=== PATIENT | female | born 1970 | race Caucasian/White ===

== ENCOUNTER 2017-09-04 17:25 | Emergency (ER) | payer OTHER ==
[~2017-09-04] VITALS: Ht 160 cm; Wt 50.8 kg
[~2017-09-04 17:25] MED LIST: ALPR0.5T PO; IBUP1CAP PO; PRLSR20 PO
[2017-09-04 17:36] VITALS: TEMP 36.7; Ht 160 cm; Wt 50.8 kg
[2017-09-04] MEDS ORDERED: SODIUM CHLORIDE 0.9% 500ML 500 ML IV STA (18:29)
[2017-09-04] MEDS ORDERED: GI COCKTAIL PO STA (18:29)
[2017-09-04] MEDS ORDERED: METHYLPREDNISOLONE 125 MG VIAL IV STA (18:29)
[2017-09-04] MEDS ORDERED: ALBUT/IPRATROP 3MG/0.5MG NEB 3 ML VIAL INH ONE (18:30)
[2017-09-04] MEDS ORDERED: LIDOCAINE HCL 2% VISC SOLN 20 ML UDC ONE (18:46)
[2017-09-04] MEDS ORDERED: ALUMINUM/MAGNESIUM SUSP 30 ML UDC ONE (18:46)
--- NOTE | 2017-09-04 18:50 | EMERGENCY ROOM VISIT NOTE ---
History Report prepared by Yanci: Stephani Staples Under the Supervision of: Dr. Harjeet Donaldson M.D. First contact with patient: 18:22 Chief Complaint: SORETHROAT Stated Complaint: SORE THROAT, COUGHING, MY RT SHOULDER History of Present Illness The patient is a 46 year old female who presents to the Emergency Room with complaints of persistent cough starting last week. The patient was started on Levaquin by her PCP 6 days ago for bronchitis, but she is still coughing. She woke up yesterday morning with a sore throat. She has been using an inhaler. She is currently not on steroids. She notes that she broke her right shoulder several weeks ago. She has been waiting to hear back from ortho. She states that the pain has worsened because she has continued working. She quit smoking 1 year ago. Source of History: patient Onset: last week Position: other (global) Quality: other (cough) Timing: other (persistent) Associated Symptoms: + sorethroat Note: Pt reports right shoulder pain. Review of Systems See HPI for pertinent positives & negatives. A total of 10 systems reviewed and were otherwise negative. Past Medical & Surgical Medical Problems: (1) Meningitis Family History Patient reports no known family medical history. Social History Smoking Status: Former Smoker Marital Status: Housing Status: lives with family Current/Historical Medications Scheduled Albuterol Hfa (Ventolin Hfa), 2-4 PUFFS INH Q6H Doxycycline Monohydrate (Monodox), 100 MG PO BID Ibuprofen (Midol), 400 MG PO DAILY Omeprazole (Prilosec), 20 MG PO DAILY Prednisone (Prednisone Tab), 0 PO DAILY Scheduled PRN Alprazolam (Xanax), 1 MG PO QID PRN Hydrocodone W/ Homatropine (Hycodan 5/1.5MG 5 Ml), 5 ML PO HS PRN for Cough Allergies Coded Allergies: No Known Allergies (Unverified , 06/12/16) Physical Exam Vital Signs Date Time Temp Pulse Resp B/P (MAP) Pulse Ox O2 Delivery O2 Flow Rate FiO2 09/04/17 19:05 91 18 108/82 95 09/04/17 17:36 36.7 102 20 119/83 95 Room Air 09/04/17 17:36 95 Room Air Physical Exam GENERAL: Patient is a healthy-appearing well-nourished female HEAD: Normocephalic atraumatic EYES: Ocular movements intact pupils equal and react to light OROPHARYNX mucous membranes are moist no exudates present no erythema or edema present NECK: Supple no nuchal rigidity CHEST: Good equal expansion LUNGS: Bilateral wheezing. CARDIAC: Normal S1 and S2 ABDOMEN: Soft nontender no guarding BACK: No CVA tenderness EXTREMITIES: No pain upon palpation normal muscle strength in all groups no clubbing cyanosis or edema NEURO: Patient is following commands and answering questions appropriately. Alert and oriented x3 Cranial Nerves 2-12 grossly intact Medical Decision & Procedures ER Provider Diagnostic Interpretation: X-ray results as stated below per interpretation by me and the radiologist: CHEST ONE VIEW PORTABLE HISTORY: 46 years-old Female Pt c/o SOB acute shortness of breath. COMPARISON: Chest radiograph 07/31/2013 TECHNIQUE: Portable upright AP view of the chest FINDINGS: Upper lobe predominant bullous emphysematous disease redemonstrated with associated upper lobe linear subsegmental pleural-parenchymal scarring. No pneumothorax, pleural effusion, focal airspace consolidation or overt pulmonary edema. Cardiac silhouette is within normal limits. Bones of the chest are grossly intact. IMPRESSION: 1. No acute cardiopulmonary process. 2. Redemonstration of bullous emphysematous disease with an upper lung zone predominant distribution with associated subsegmental upper lobe pleural parenchymal scarring. The above report was generated using voice recognition software. It may contain grammatical, syntax or spelling errors. Electronically signed by: Gopal Calhoun M.D. 09/04/2017 6:48 PM Dictated Date/Time: 09/04/2017 6:45 PM Laboratory Results Labs reviewed by ED physician. ED Course 1823: Past medical records reviewed. The patient was evaluated in room C11B. A complete history and physical examination was performed. 1904: Upon reexamination the patient is resting comfortably. I discussed results and treatment plan with the patient. She verbalizes agreement and understanding. The patient is ready for discharge. Medical Decision Differential diagnosis: Etiologies such as infections, reactive airway disease, pneumonia, pneumothorax , COPD, CHF, cardiac ischemia, pulmonary embolism, musculoskeletal, gastrointestinal, as well as others were entertained. This is a 47-year-old female who presents emergency department complaining of wheezing as well as right shoulder pain. Using shared medical decision-making I recommended the patient receive laboratory work as well as an IV and the patient initially agreed to this however before this could be performed the patient refused it. She simply wants a prednisone taper as well as an antibiotic and medicine for her cough. For this reason the patient was given Hycodan doxycycline prednisone and albuterol despite my recommendations. Medication Reconcilliation Current Medication List: was personally reviewed by me Blood Pressure Screening Patient's blood pressure: Normal blood pressure Blood pressure disposition: Did not require urgent referral Impression Primary Impression: Sore throat Scribe Attestation The scribe's documentation has been prepared under my direction and personally reviewed by me in its entirety. I confirm that the note above accurately reflects all work, treatment, procedures, and medical decision making performed by me. Departure Information Dispostion Home / Self-Care Prescriptions Hydrocodone W/ Homatropine (HYCODAN 5/1.5MG 5 ML) 1 Syp Syp 5 ML PO HS Y for Cough, #120 ML Prov: Harjeet Donaldson MD 09/04/17 Doxycycline Monohydrate (Monodox) 100 Mg Cap 100 MG PO BID for 10 Days, #20 CAP Prov: Harjeet Donaldson MD 09/04/17 Prednisone (Prednisone Tab) 20 Mg Tab 0 PO DAILY, #7 TAB 2 TABS DAILY FOR 2 DAYS, THEN 1 TAB DAILY FOR 2 DAYS, THEN 1/2 TAB DAILY FOR 2 DAYS. Prov: Harjeet Donaldson MD 09/04/17 Albuterol Hfa (VENTOLIN HFA) 200 Puffs/06833 Mcg Aers 2-4 PUFFS INH Q6H, #1 INHALER Prov: Harjeet Donaldson MD 09/04/17 Referrals Andrew Colmenares PA-C (PCP) Avi Fortune M.D. Patient Instructions My [facility] Additional Instructions Take 2 puffs of inhaler every 6 hours Follow up with Dr Fortune's office for shoulder pain Use 1000 mg Tylenol every 6 hours Take 600 mg Ibuprofen every 6 hours Take hycodan for breakthrough pain
[2017-09-04] MEDS ORDERED: VNTHFA/IN INH (18:59)
[2017-09-04] MEDS ORDERED: DOXY100C76 PO (18:59)
[2017-09-04] MEDS ORDERED: PRED20TA2 PO (18:59)
[2017-09-04] MEDS ORDERED: HYDR5SYP11 PO (19:00)
[2017-09-04 19:05] VITALS: BP 108/82; PULSE 91; O2SAT 95
== END 2017-09-04 19:05 | disposition home or self-care (01) ==
LOC: C.EDB 17:26 → C.EDC 19:05
DX: J02.9 Acute pharyngitis, unspecified (principal); Z87.891 Personal history of nicotine dependence; Z79.899 Other long term (current) drug therapy

== ENCOUNTER 2018-01-12 17:47 | Emergency (ER) | payer OTHER ==
[~2018-01-12] VITALS: Ht 160 cm; Wt 49.9 kg
[~2018-01-12 17:47] MED LIST changes: +PRED20TA2 PO; +VNTHFA/IN INH
[2018-01-12 17:54] VITALS: TEMP 36.6; Ht 160 cm; Wt 49.9 kg
[2018-01-12] MEDS ORDERED: LEVO-366 PO (18:12)
--- NOTE | 2018-01-12 18:25 | DIAGNOSTIC IMAGING REPORT ---
R SHOULDER MIN 2 VIEWS ROUTINE CLINICAL HISTORY: right shoulder pain pain COMPARISON: None. DISCUSSION: Considerable degenerative change of the glenohumeral joint. Mild degenerative change acromioclavicular joint. No well-defined acute bony antibody. Emphysematous changes of lungs. There is no evidence for soft tissue swelling. IMPRESSION: Considerable degenerative change primarily of the glenohumeral joint. The above report was generated using voice recognition software. It may contain grammatical, syntax or spelling errors. Electronically signed by: Nathaniel Gonzalez M.D. 01/12/2018 6:23 PM Dictated Date/Time: 01/12/2018 6:23 PM
[2018-01-12] MEDS ORDERED: PRED20TA PO (19:29)
[2018-01-12] MEDS ORDERED: NORCO 5/325MG HOME PACK PO ONE (19:30)
[2018-01-12 19:59] VITALS: BP 141/92; PULSE 77; O2SAT 96
--- NOTE | 2018-01-12 20:43 | EMERGENCY ROOM VISIT NOTE ---
ED Visit Note First contact with patient: 17:53 CHIEF COMPLAINT: Shoulder pain HISTORY OF PRESENT ILLNESS: This 47-year-old female patient presents to the emergency department complaining of pain in the right shoulder for the past 2 years. She reports a remote history of fracture to her right shoulder, and states that she has had chronic difficulty with it ever since. There is limitation of motion of the arm because of the pain. The pain is moderate, constant and increases with motion of the hand and arm. The patient states the pain is sharp and 7/10. The patient has taken Aleve without significant relief of the pain. No previous significant previous shoulder disease or injury. No numbness or tingling. No neck and no back pain. No chest pain or shortness of breath. No abdominal pain or nausea/vomiting. No cough. Her pain worsened today , prompting her to come to the ER. REVIEW OF SYSTEMS: A 6 system review of systems was performed with positives and pertinent negatives in the HPI. ALLERGIES: No known allergies MEDICATIONS: No chronic medication PMH: Chronic right shoulder pain SOCIAL HISTORY: Lives with significant other PHYSICAL EXAM: Vital Signs: Reviewed nurse's notes, vital signs stable. GENERAL : White female, in no acute distress, but appears to be in pain, well-developed , well-nourished. MUSCULOSKELETAL: There is no deformity in the contour of the right shoulder and there are no dieter deformities noted. There is no sulcus sign. There is tenderness over the proximal humerus. The patient's range of motion is limited secondary to discomfort. Supraspinatus strength 1/5. There is no clavicle tenderness. No tenderness of the humerus, elbow, wrist, or hand. Matching Machine Operator strength 5/5. Radial pulse 2+. NECK: No tenderness to palpation over the cervical spine. HEART: Regular rate and rhythm without murmurs gallops or rubs. LUNGS: Clear to auscultation bilaterally without wheezes, rales or rhonchi. No accessory muscle use. No retractions. NEURO: The patient is alert and oriented to person, place, and time. Normal sensation to light and sharp touch. Capillary refill less than 2 seconds. R SHOULDER MIN 2 VIEWS ROUTINE CLINICAL HISTORY: right shoulder pain pain COMPARISON: None. DISCUSSION: Considerable degenerative change of the glenohumeral joint. Mild degenerative change acromioclavicular joint. No well-defined acute bony antibody. Emphysematous changes of lungs. There is no evidence for soft tissue swelling. IMPRESSION: Considerable degenerative change primarily of the glenohumeral joint EMERGENCY DEPARTMENT COURSE: Physical exam and history were performed. Nursing notes and EMR were reviewed. The patient reports a two-year history of right shoulder pain after initially fracturing it. She has had worsening pain today, prompting her presentation. X-rays were obtained and read by myself and radiology is showing considerable degenerative change of the glenohumeral joint. The patient will be placed in an arm sling. I will place her on a course of prednisone and give her a home pack of Vicodin. She does not wish to follow with [facility] providers, and will be referred to [facility] orthopedics for further care and management. She was otherwise invited back to the ER with any new, worsening, or concerning symptoms. Problem List Medical Problems: (1) Meningitis Status: Resolved Current/Historical Medications Scheduled Albuterol Hfa (Ventolin Hfa), 2-4 PUFFS INH Q6H Levofloxacin (Levaquin), 500 MG PO DAILY Prednisone (Prednisone Tab), 0 PO DAILY Prednisone (Prednisone), 0 PO DAILY Scheduled PRN Alprazolam (Xanax), 1 MG PO QID PRN Omeprazole (Prilosec), 20 MG PO DAILY PRN for Indigestion Allergies Coded Allergies: No Known Allergies (Unverified , 01/12/18) Vital Signs Date Time Temp Pulse Resp B/P (MAP) Pulse Ox O2 Delivery O2 Flow Rate FiO2 01/12/18 19:59 77 18 141/92 96 Room Air 01/12/18 17:54 36.6 79 19 135/96 93 Room Air Medications Administered Medications (Trade) Dose Ordered Sig/Denzel Route Start Time Stop Time Status Last Admin Dose Admin Acetaminophen/ Hydrocodone Bitart (Eden 5/325mg Home Pack) 1 homepack UD ONCE PO 01/12/18 19:30 01/12/18 19:31 DC 01/12/18 19:55 1 HOMEPACK Departure Information Impression Primary Impression: Right shoulder pain Dispostion Home / Self-Care Condition GOOD Prescriptions Prednisone (Prednisone) 20 Mg Tab 0 PO DAILY, #18 TAB 3 DAILY FOR 3 DAYS, THEN 2 DAILY FOR 3 DAYS, THEN 1 DAILY FOR 3 DAYS. Prov: Yash Fox PA-C 01/12/18 Referrals Avi Chong MD Forms HOME CARE DOCUMENTATION FORM, IMPORTANT VISIT INFORMATION Patient Instructions My [facility] Additional Instructions You were seen and evaluated today on an emergency basis only. This is not a substitute for, or an effort to provide, complete comprehensive medical care. It is not possible to recognize and treat all injuries or illnesses in a single emergency department visit. For this reason it is recommended that you followup with [facility]opa[facility]ics , Dr. Chong's office, for ongoing care and evaluation. For baseline pain relief you may alternate ibuprofen and acetaminophen every 4 hours for pain control. Take 600 mg ibuprofen (Advil) and then 4 hours later take 1000 mg acetaminophen (Tylenol). Do not take more than 3000 mg acetaminophen in a single day. Take prednisone as prescribed Wear your arm sling for comfort Eden (hydrocodone/acetaminophen) 5/325 mg (homepack) every 6 hours as needed for worsening breakthrough pain. Do not drink or drive on [place]. This medication will likely make you tired. Do not take Eden and Tylenol at the same time as both contain acetaminophen. Eden may cause constipation. You may wish to take an [id number] stool softener like Colace if this occurs. You are welcome to return to the emergency department anytime with new, worsening, or concerning symptoms.
== END 2018-01-12 20:00 | disposition home or self-care (01) ==
LOC: C.EDB 17:48 → C.EDD 20:00
DX: M25.511 Pain in right shoulder (principal); G89.29 Other chronic pain

== ENCOUNTER 2018-04-05 16:36 | Emergency (ER) | payer OTHER ==
[~2018-04-05] VITALS: Ht 160 cm; Wt 50.1 kg
[~2018-04-05 16:36] MED LIST changes: -IBUP1CAP PO; +LEVO-366 PO; +PRED20TA PO; -PRED20TA2 PO; -VNTHFA/IN INH
[2018-04-05 16:38] VITALS: TEMP 36.8; Ht 160 cm; Wt 50.1 kg
[2018-04-05] MEDS ORDERED: KETOROLAC TROMETHAMINE 30 MG/ML VIAL IV STA (16:53)
[2018-04-05] MEDS ORDERED: SODIUM CHLORIDE 0.9% 1000ML 1,000 ML IV STA (16:53)
[2018-04-05] MEDS ORDERED: FENTANYL CITRATE INJ 50 MCG/1 ML 2 ML VIAL IV STA (16:53)
[2018-04-05] MEDS ORDERED: DEXAMETHASONE **PF** INJ 10 MG/ML VIAL IV ONE (17:00)
[2018-04-05] MEDS ORDERED: AMPICILLIN/SULBACTAM SOD INJ 3,000 MG in SODIUM CHLORIDE 0.9% 100ML 100 ML IV STA (17:04)
[2018-04-05] MEDS ORDERED: CLIN300C2 PO (17:05)
[2018-04-05] MEDS ORDERED: GABA-113 PO (17:05)
--- NOTE | 2018-04-05 17:05 | EMERGENCY ROOM VISIT NOTE ---
History Report prepared by Yanci: Swati Huggins Under the Supervision of: Dr. Real Cortez M.D. First contact with patient: 16:49 Chief Complaint: SWELLING TO EXTREMITY Stated Complaint: SWELLING ON JAWBONE AND NECK History of Present Illness The patient is a 47 year old female who presents to the Emergency Room with complaints of worsening left sided jaw pain and swelling beginning two weeks ago. The patient was diagnosed with an abscess tooth two weeks ago and was put on penicillin. The patient states her jaw pain and swelling worsened so she went to Urgent Care a week ago and was put on Clindamycin. Today is the patient' s last dose of the Clindamycin. The patient states she went back to her PCP five days ago and was scheduled to have an outpatient CT with contrast. The patient reports they were unable to get a line on her so the CT was never done. The patient reports over the past five days her tooth pain has worsened and is "unbearable". She notes worsening pain with trying to open her mouth. She also reports and intermittent fever over the past couple days. She denies any abdominal pain. The patient reports she has had an abscess tooth previously but she states it was not similar to her symptoms today. Source of History: patient Onset: two weeks ago Position: jaw Quality: other (swelling and pain) Timing: worsening Modifying Factors (Worsening): other (opening mouth) Associated Symptoms: + fevers, No abdominal pain Review of Systems See HPI for pertinent positives and negatives. A total of ten systems were reviewed and were otherwise negative. Past Medical & Surgical Medical Problems: (1) Meningitis Family History Patient reports no known family medical history. Social History Smoking Status: Current Every Day Smoker Marital Status: Housing Status: lives with family Current/Historical Medications Scheduled Amoxicillin & Pot Clavulanate (Augmentin 875-125 mg), 875 MG PO BID Clindamycin Hcl (Cleocin), 300 MG PO TID Doxycycline Hyclate (Doxycycline Hyclate), 1 CAP PO BID Gabapentin (Neurontin), 300 MG PO TID Prednisone (Prednisone), 3 TAB PO DAILY Saccharomyces Boulardii (Florastor), 1 CAP PO BID Scheduled PRN Alprazolam (Xanax), 1 MG PO QID PRN Omeprazole (Prilosec), 20 MG PO DAILY PRN for Indigestion Allergies Coded Allergies: No Known Allergies (Unverified , 5/5/18) Physical Exam Vital Signs Date Time Temp Pulse Resp B/P (MAP) Pulse Ox O2 Delivery O2 Flow Rate FiO2 04/05/18 21:14 106 143/90 94 04/05/18 18:46 89 04/05/18 18:41 89 20 133/92 91 Room Air 04/05/18 16:38 36.8 103 20 115/81 98 Room Air Physical Exam GENERAL: Awake, alert, uncomfortable-appearing, in no distress HENT: Normocephalic, atraumatic. Oropharynx unremarkable. Dry MM. EYES: Normal conjunctiva. Sclera non-icteric. NECK: 5 cm region of induration, erythema, and warmth of left lateral neck. No tongue elevation or trismus. No mastoid tenderness. No pain with tracheal manipulation. RESPIRATORY: Clear to auscultation. CARDIAC: ST, normal rhythm. Extremities warm and well perfused. Pulses equal. ABDOMEN: Soft, non-distended. No tenderness to palpation. No rebound or guarding. No masses. RECTAL: Deferred. MUSCULOSKELETAL: Chest examination reveals no tenderness. The back is symmetrical on inspection without obvious abnormality. There is no CVA tenderness to palpation. No joint edema. LOWER EXTREMITIES: Calves are equal size bilaterally and non-tender. No edema. No discoloration. NEURO: Normal sensorium. No sensory or motor deficits noted. SKIN: No rash or jaundice noted. Medical Decision & Procedures ER Provider Diagnostic Interpretation: Radiology results as stated below per my review and radiologist interpretation: SOFT TISSUE NECK WITH FINDINGS: Record Clerk Salesperson topogram: Unremarkable. A marker is in place at the left angle the mandible. Subjacent to this there is a 3.8 cm rim-enhancing fluid collection consistent with abscess. This abuts the left submandibular gland and may be contained within the inferior aspect of the left parotid gland. Surrounding fat infiltration and fascial thickening. Overlying skin thickening apparent. There is no significant associated osseous erosion. Periapical lucencies noted at the left maxillary canine and left mandibular first molar. Several teeth are absent. Temporal mandibular joints intact. Paranasal sinuses and mastoid air cells clear. Orbits normal. Limited intracranial evaluation within normal limits. Vasculature patent. Thyroid gland normal. Cervical spine normal. Severe emphysematous changes at the lung apices. IMPRESSION: Findings consistent with abscess at the left angle the mandible. This is immediately inferior to the left parotid gland and adjacent to the left submandibular gland. No evidence of associated bony changes. No convincing evidence of an odontogenic origin. Electronically signed by: Avi Fraire M.D. Laboratory Results 04/05/18 19:34 Red Blood Count 4.21, Mean Corpuscular Volume 94.8, Mean Corpuscular Hemoglobin 32.1, Mean Corpuscular Hemoglobin Concent 33.8, Mean Platelet Volume , Neutrophils (%) (Auto) 84.0, Lymphocytes (%) (Auto) 10.1, Monocytes (%) (Auto) 4.7, Eosinophils (%) (Auto) 0.8, Basophils (%) (Auto) 0.1, Neutrophils # (Auto) 17.61, Lymphocytes # (Auto) 2.12, Monocytes # (Auto) 0.98, Eosinophils # (Auto) 0.16, Basophils # (Auto) 0.03 04/05/18 18:17 Test 04/05/18 18:17 04/05/18 19:34 Anion Gap 8.0 mmol/L (3-11) Est Creatinine Clear Calc Drug Dose 70.7 ml/min Estimated GFR () 105.8 Estimated GFR (Non- 91.3 BUN/Creatinine Ratio 21.6 (10-20) Calcium Level 8.3 mg/dl (8.5-10.1) Total Bilirubin 0.5 mg/dl (0.2-1) Direct Bilirubin 0.2 mg/dl (0-0.2) Aspartate Amino Transf (AST/SGOT) 13 U/L (15-37) Alanine Aminotransferase (ALT/SGPT) 12 U/L (12-78) Alkaline Phosphatase 97 U/L (45-117) Total Protein 7.0 gm/dl (6.4-8.2) Albumin 2.6 gm/dl (3.4-5.0) Lipase 50 U/L (73-393) White Blood Count 20.97 K/uL (4.8-10.8) Red Blood Count 4.21 M/uL (4.2-5.4) Hemoglobin 13.5 g/dL (12.0-16.0) Hematocrit 39.9 % (37-47) Mean Corpuscular Volume 94.8 fL (80-100) Mean Corpuscular Hemoglobin 32.1 pg (25-34) Mean Corpuscular Hemoglobin Concent 33.8 g/dl (32-36) Platelet Count K/uL (130-400) Mean Platelet Volume fL (7.4-10.4) Neutrophils (%) (Auto) 84.0 % Lymphocytes (%) (Auto) 10.1 % Monocytes (%) (Auto) 4.7 % Eosinophils (%) (Auto) 0.8 % Basophils (%) (Auto) 0.1 % Neutrophils # (Auto) 17.61 K/uL (1.4-6.5) Lymphocytes # (Auto) 2.12 K/uL (1.2-3.4) Monocytes # (Auto) 0.98 K/uL (0.11-0.59) Eosinophils # (Auto) 0.16 K/uL (0-0.5) Basophils # (Auto) 0.03 K/uL (0-0.2) RDW Standard Deviation 45.7 fL (36.4-46.3) RDW Coefficient of Variation 13.1 % (11.5-14.5) Immature Granulocyte % (Auto) 0.3 % Immature Granulocyte # (Auto) 0.07 K/uL (0.00-0.02) Laboratory results reviewed by me Medications Administered Medications (Trade) Dose Ordered Sig/Denzel Route Start Time Stop Time Status Last Admin Dose Admin Sodium Chloride 1,000 ml @ 999 mls/hr Q1H1M STAT IV 04/05/18 16:53 04/05/18 17:53 DC 04/05/18 18:40 999 MLS/HR Dexamethasone Sodium Phosphate (Dexamethasone Inj Pf) 10 mg NOW ONCE IV 04/05/18 17:00 04/05/18 17:02 DC 04/05/18 18:39 10 MG Ketorolac Tromethamine (Toradol Inj) 15 mg NOW STAT IV 04/05/18 16:53 04/05/18 17:02 DC 04/05/18 18:39 15 MG Fentanyl Citrate (Fentanyl Inj) 50 mcg NOW STAT IV 04/05/18 16:53 04/05/18 17:02 DC 04/05/18 18:39 50 MCG Ampicillin Sodium/ Sulbactam Sodium 3000 mg/Sodium Chloride 108 ml @ 200 mls/hr ONE STAT IV 04/05/18 17:04 04/05/18 17:36 DC 04/05/18 18:39 200 MLS/HR Doxycycline Hyclate (Vibramycin Cap) 100 mg ONE STAT PO 04/05/18 20:40 04/05/18 20:41 DC 04/05/18 21:09 100 MG ED Course 1651: The patient was evaluated in room C6. A complete history and physical exam was performed. 2022: I updated the patient on her test results. She refuses to come into the hospital for further evaluation and treatment. 2049: I reevaluated the patient. Discussed results and discharge instructions: She verbalized understanding and agreement. The patient is ready for discharge. Medical Decision I reviewed the patient's past medical history, medications, and the nursing notes as described above. Differential diagnoses: abscess, cellulitis, deep neck infection, parotitis, Antonio's angina. The patient is a 47-year-old woman who presents emergency department with worsening left submandibular neck swelling over the past couple of weeks being followed by her PCP currently completing a course of clindamycin per hpi. On arrival, the patient is uncomfortable but no acute distress, afebrile, heart rate 100s and otherwise stable vital signs. On exam the patient has a 5 cm area of induration and fluctuance to the left submandibular area with mild erythema and warmth. No crepitus. No tongue elevation or trismus. No pain with tracheal manipulation. Evaluation of the patient's oropharynx demonstrates poor dentition but otherwise no significant gingival edema. Labs notable for leukocytosis of 20.9. CT soft tissue of the neck demonstrates a near 4 cm fluid collection concerning for abscess possibly contained within the parotid gland with no clear odontogenic origin and no bone erosion. The patient 's likely significant abscess in the setting of severe leukocytosis I recommended that the patient be admitted for continued IV antibiotics and surgical consultation. Patient however was adamant that she could not be admitted without having her present she gets very anxious in the hospital. You did explain that the patient could become very sick without appropriate treatment. I clearly explained to the patient that by leaving AGAINST MEDICAL ADVICE she could risk a worse condition and which would include disability such as but not limited to intubation and further complications that are associated with severe medical illness. Patient exhibited clear decision-making capacity expressed understanding of these risks. Thus we agreed that we would provide broad-spectrum oral antibiotics with Augmentin and doxycycline. She was instructed and encouraged to return at any point should she change her mind. Otherwise, she will follow-up with her primary care doctor as she trusts this provider and would like his recommendations. Findings and plan for follow-up reviewed with patient and she was discharged AMA per instructions. Medication Reconcilliation Current Medication List: was personally reviewed by me Blood Pressure Screening Patient's blood pressure: Normal blood pressure Impression Primary Impression: Submandibular abscess Scribe Attestation The scribe's documentation has been prepared under my direction and personally reviewed by me in its entirety. I confirm that the note above accurately reflects all work, treatment, procedures, and medical decision making performed by me. Departure Information Dispostion Against Medical Advice Prescriptions Doxycycline Monohydrate (Monodox) 100 Mg Cap 100 MG PO BID for 10 Days, #20 CAP Prov: Real Cortez M.D. 04/06/18 Prednisone (Prednisone) 20 Mg Tab 3 TAB PO DAILY for 4 Days, #12 TAB FOR 4 DAYS Prov: Real Cortez M.D. 04/05/18 Saccharomyces Boulardii (Florastor) 250 Mg Cap 1 CAP PO BID for 10 Days, #20 CAP Prov: Real Cortez M.D. 04/05/18 Amoxicillin & Pot Clavulanate (Augmentin 875-125 mg) 1 Tab Tab 875 MG PO BID for 10 Days, #20 TAB Prov: Real Cortez M.D. 04/05/18 Referrals Andrew Colmenares PA-C (PCP) Forms HOME CARE DOCUMENTATION FORM, IMPORTANT VISIT INFORMATION, WORK / SCHOOL INSTRUCTIONS Patient Instructions ED Abscess Dental, [facility] Additional Instructions You have a 4 cm abscess next to your jaw that is concerning for severe infection. We recommended that he stay for IV antibiotics and surgical consultation. However, you did not want to be admitted and preferred to be discharged AGAINST MEDICAL ADVICE. Please note, by leaving AGAINST MEDICAL ADVICE you risk a worse condition, disability, and . However, we're open 24 hours a day and 7 days a week if you were to change your mind or have any worsening symptoms and should not hesitate to return. Please follow up with your primary care physician on Saturday for re-evaluation and referral. Acetaminophen or ibuprofen for pain and fevers as needed. Augmentin and doxycycline antibiotics as directed. Florastor, probiotic, to help prevent antibiotic associated diarrhea. Prednisone as directed to help decrease localized swelling. Drink plenty of fluids to ensure hydration. Return to the emergency department for worsening symptoms as described in the accompanying instructions.
[2018-04-05] MEDS ORDERED: OPTIRAY 320 IV PRN (17:15)
[2018-04-05 19:07] LABS: ALBUMIN 2.6 gm/dl (3.4-5.0); CALCIUM 8.3 mg/dl (8.5-10.1); CREATININE 0.77 mg/dl (0.60-1.20); POTASSIUM 3.9 mmol/L (3.5-5.1)
--- NOTE | 2018-04-05 20:14 | DIAGNOSTIC IMAGING REPORT ---
SOFT TISSUE NECK WITH CLINICAL HISTORY: 47 years-old Female presenting with left jaw swelling. TECHNIQUE: Multidetector CT of the neck was performed after the administration of intravenous contrast. IV contrast: 93 mL of Optiray 320. A dose lowering technique was used consistent with the principles of ALARA (as low as reasonably achievable). COMPARISON: None. CT DOSE (mGy.cm): The estimated cumulative dose is 232.66 mGy.cm. FINDINGS: Mechanical Drafter topogram: Unremarkable. A marker is in place at the left angle the mandible. Subjacent to this there is a 3.8 cm rim-enhancing fluid collection consistent with abscess. This abuts the left submandibular gland and may be contained within the inferior aspect of the left parotid gland. Surrounding fat infiltration and fascial thickening. Overlying skin thickening apparent. There is no significant associated osseous erosion. Periapical lucencies noted at the left maxillary canine and left mandibular first molar. Several teeth are absent. Temporal mandibular joints intact. Paranasal sinuses and mastoid air cells clear. Orbits normal. Limited intracranial evaluation within normal limits. Vasculature patent. Thyroid gland normal. Cervical spine normal. Severe emphysematous changes at the lung apices. IMPRESSION: Findings consistent with abscess at the left angle the mandible. This is immediately inferior to the left parotid gland and adjacent to the left submandibular gland. No evidence of associated bony changes. No convincing evidence of an odontogenic origin. Electronically signed by: Avi Fraire M.D. 04/05/2018 8:13 PM Dictated Date/Time: 04/05/2018 8:09 PM
[2018-04-05 20:18] LABS: BASO % 0.1 %; BASO ABS # 0.03 K/uL (0-0.2); EOS % 0.8 %; EOS ABS # 0.16 K/uL (0-0.5); HEMATOCRIT 39.9 % (37-47); HEMOGLOBIN 13.5 g/dL (12.0-16.0); IG# 0.07 K/uL (0.00-0.02); LYMPH % 10.1 %; LYMPH ABS # 2.12 K/uL (1.2-3.4); MEAN CELL VOLUME 94.8 fL (80-100); MEAN CORPUSCULAR HEMOGLOBIN 32.1 pg (25-34); MEAN CORPUSCULAR HGB CONC 33.8 g/dl (32-36); MONO % 4.7 %; MONO ABS # 0.98 K/uL (0.11-0.59); NEUT ABS # 17.61 K/uL (1.4-6.5); RED CELL DISTRIBUTION WIDTH CV 13.1 % (11.5-14.5); RED CELL DISTRIBUTION WIDTH SD 45.7 fL (36.4-46.3); WHITE BLOOD COUNT 20.97 K/uL (4.8-10.8)
[2018-04-05] MEDS ORDERED: DOXYCYCLINE HYCLATE 100 MG CAP PO STA (20:40)
[2018-04-05] MEDS ORDERED: PRED20TA PO (20:45)
[2018-04-05] MEDS ORDERED: AMOX875T PO (20:45)
[2018-04-05] MEDS ORDERED: DXY100 PO (20:45)
[2018-04-05] MEDS ORDERED: SACC250C3 PO (20:45)
[2018-04-05 21:14] VITALS: BP 143/90; PULSE 106; O2SAT 94
[2018-04-06] MEDS ORDERED: DOXY100C76 PO (18:25)
== END 2018-04-05 21:15 | disposition left against medical advice (07) ==
LOC: C.EDB 16:36 → C.EDC 21:15
DX: K12.2 Cellulitis and abscess of mouth (principal); F17.210 Nicotine dependence, cigarettes, uncomplicated; Z79.899 Other long term (current) drug therapy

== ENCOUNTER → 2018-04-10 | Day surgery (SDC) | payer OTHER ==
[2018-04-09 15:47] VITALS: Ht 160 cm; Wt 50.9 kg
[~2018-04-10] VITALS: Ht 160 cm; Wt 50.9 kg
[~2018-04-10] MED LIST changes: +ALBUT/IPRATROP 3MG/0.5MG NEB 3 ML VIAL INH ONE; +ALBUT/IPRATROP 3MG/0.5MG NEB 3 ML VIAL ONE; +AMOX875T PO; +ATROPINE SULFATE 0.1 MG/ML 5ML SYR IV PRN; +CEFAZOLIN 1000MG IV PUSH 7.5 ML IV SCH; +CLIN300C2 PO; +EpHEDrine SULFATE INJ 50 MG/ML AMP IV PRN; +FENTANYL CITRATE INJ 50 MCG/1 ML 2 ML VIAL IV PRN; +FENTANYL CITRATE INJ 50 MCG/1 ML 2 ML VIAL ONE; +GABA-113 PO; +KETOROLAC TROMETHAMINE 30 MG/ML VIAL IV. PRN; +LACTATED RINGER'S 1000ML 1,000 ML IV SCH; -LEVO-366 PO; +LIDO 2%/EPINEPHRINE 1:100000 20 ML VIAL ONE; +LIDOCAINE HCL 2% 2 ML VIAL (20MG/ML) ONE; +MIDAZOLAM HCL 1 MG/ML 2ML VIAL ONE; +ONDANSETRON INJ 2 MG/ML 2 ML VIAL IV PRN; -PRED20TA PO; +PROPOFOL IV EMULSION 10 MG/ML 20 ML VIAL ONE; +SODIUM CHLORIDE 0.9% 1000ML 1,000 ML IV SCH; +TRAM-10 PO
--- NOTE | 2018-04-10 08:02 | History and Physical: Surg Cnt ---
History & Physical Date April 10, 2018. Chief Complaint abcess left neck History of Present Illness The patient is a 47 year old female with complaints of 3 weeks of swelling left neck, went to 2 ER's, treated with antibiotics, CT showed abcess and severe dental caries, cannot find dentist willing to see her Past Medical/Surgical History Medical Problems: (1) Meningitis Additional History Hepatic Disease: No Endocrine Disorder: No Kidney Disease: No Hypertension: No Heart Disease: No Bleeding Tendencies: No Infectious Diseases: Yes Allergies Coded Allergies: No Known Allergies (Unverified , 04/09/18) Home Medications Scheduled Amoxicillin & Pot Clavulanate (Augmentin 875-125 mg), 1 TAB PO BID Clindamycin Hcl (Cleocin), 300 MG PO TID Gabapentin (Neurontin), 300 MG PO TID Scheduled PRN Alprazolam (Xanax), 1 MG PO QID PRN Omeprazole (Prilosec), 20 MG PO DAILY PRN for Indigestion Physical Examination Skin: warm/dry, no rash Eyes: normal inspection, EOMI, sclerae normal ENT: normal ENT inspection, pharynx normal Head: normocephalic, atraumatic Neck: + pertinent finding (large fluctuant left neck mass, red, swollen, tender ) Respiratory/Chest: lungs clear, normal breath sounds, no respiratory distress Cardiovascular: regular rate, rhythm, no edema, no murmur Abdomen / GI: normal bowel sounds, non tender Back: normal inspection Extremities: normal inspection, normal range of motion Diagnosis left neck abcess Plan of Treatment incision and drainage
--- NOTE | 2018-04-10 09:31 | Discharge Instructions-SurgCtr ---
Discharge Instructions Date of Service April 10, 2018. Visit Reason for Visit: Abcess Left Neck Discharge Discharge Diagnosis / Problem: same Discharge Goals Goal(s): Therapeutic intervention Activity Recommendations Activity Limitations: resume your previous activity Anesthesia . Post Anesthesia Instructions: If you have had General Anesthesia or IV Sedation: * Do not drive today. * Resume driving when surgeon permits. * Do not make important decisions or sign legal documents today. * Call surgeon for: 1. Temperature elevations greater than 101 degrees F. 2. Uncontrollable pain. 3. Excessive bleeding. 4. Persistent nausea and vomiting. 5. Medication intolerance (nausea, vomiting or rash). * For nausea and vomiting use only clear liquids such as: tea, soda, bouillon until nausea subsides, then gradually increase diet as tolerated. * If you have any concerns or questions, call your surgeon's office. If physician is unavailable and it is an emergency, call 911 or go to the nearest emergency room. . Diet Recommendations Home Diet: no limitations Pending Studies Studies pending at discharge: no Medical Emergencies . Who to Call and When: Medical Emergencies: If at any time you feel your situation is an emergency, please call 911 immediately. . Non-Emergent Contact Non-Emergency issues call your: Primary Care Provider . . "Provider Documentation" section prepared by Mag Stokes. . [place] Drug Monitoring Program Search Results: no issues identified
--- NOTE | 2018-04-10 09:33 | [facility] Post Operative Brief Note ---
Immediate Operative Summary Operative Date April 10, 2018. Pre-Operative Diagnosis Left Neck Abscess Post-Operative Diagnosis Same Procedure(s) Performed Left Neck Abscess Incision And Drainage Surgeon Dr. Stokes Trampoline Team Coach Surgeon(s) None Estimated Blood Loss 5 mL Findings Consistent with Post-Op Diagnosis Specimens 1. Abscess Left Neck Culture for C&S, Gram Stain Drains iodoform gauze Anesthesia Type MAC Complication(s) none Disposition Accompanied Pt To Recovery: yes Disposition: Recovery Room / PACU
[2018-04-10 09:35] VITALS: TEMP 37
--- NOTE | 2018-04-10 10:06 | Anesthesia Progress Nt - [facility] ---
Anesthesia Post Op Note Date & Time April 10, 2018 at 10:06 Vital Signs Pain Intensity: 4 Vital Signs Past 12 Hours Date Time Temp Pulse Resp B/P (MAP) Pulse Ox O2 Delivery O2 Flow Rate FiO2 04/10/18 09:35 37 78 16 138/82 (100) 96 Room Air 04/10/18 07:45 36.8 63 16 146/99 (115) 98 Room Air Notes Mental Status: alert / awake / arousable, participated in evaluation Pt Amnestic to Procedure: Yes Nausea / Vomiting: adequately controlled Pain: adequately controlled Airway Patency, RR, SpO2: stable & adequate BP & HR: stable & adequate Hydration State: stable & adequate Anesthetic Complications: no major complications apparent
[2018-04-10 10:17] VITALS: BP 133/87; PULSE 84; O2SAT 98
--- NOTE | 2018-04-10 16:34 | [facility] Operative Report ---
Operative Report Operative Date April 10, 2018. Pre-Operative Diagnosis Left Neck Abscess Post-Operative Diagnosis Same Procedure(s) Performed Left Neck Abscess Incision And Drainage Surgeon Dr. Stokes Coin Machine Service Repairer Surgeon(s) None Estimated Blood Loss 5 mL Specimens 1. Abscess Left Neck Culture for C&S, Gram Stain Drains iodoform gauze Anesthesia Type MAC Complication(s) none Disposition yes Recovery Room / PACU Indications large left neck abcess Description of Procedure Under sedation, left neck prepped with betadine, injected with 2% xylo. with epi , incised with 15 blade, opened loculations with hemostat, cultured, irrigated clean, packed with iodoform gauze, and taken to recovery area in satisfactory condition I attest to the content of the Intraoperative Record and any orders documented therein. Any exceptions are noted below.
== END | disposition home or self-care (01) ==
LOC: X.SURG 07:06
PROVIDERS: ATTEND Otolaryngology
DX: L02.11 Cutaneous abscess of neck (principal); Z79.899 Other long term (current) drug therapy; F17.200 Nicotine dependence, unspecified, uncomplicated